=== PATIENT | male | born 1955 | race Caucasian/White ===

== ENCOUNTER → 2018-01-01 | Outpatient (REF) | payer BC ==
[2018-01-01 18:14] LABS: ALBUMIN 3.9 GM/DL (3.2-5.2); ALBUMIN/GLOBULIN RATIO 1.15 (1.00-1.93); ALKALINE PHOSPHATASE 67 U/L (45-117); ALT/SGPT 47 U/L (12-78); ANION GAP 9 MEQ/L (8-16); AST/SGOT 41 U/L (7-37); BASO # 0.1 10^3/uL (0.0-0.2); BASO % 0.8 % (0.0-1.0); BILIRUBIN,TOTAL 0.4 MG/DL (0.2-1.0); BLOOD UREA NITROGEN 12 MG/DL (7-18); CALCIUM LEVEL 8.5 MG/DL (8.8-10.2); CARBON DIOXIDE LEVEL 27 MEQ/L (21-32); CHLORIDE LEVEL 107 MEQ/L (98-107); CHOLESTEROL LEVEL 170 MG/DL (<200); CHOLESTEROL RISK RATIO 3.207 (<5); CREATININE FOR GFR 0.91 MG/DL (0.70-1.30); EOS # 0.2 10^3/uL (0.0-0.50); EOS % 3.5 % (0.0-3.0); GLOMERULAR FILTRATION RATE > 60.0 (>49); GLUCOSE, FASTING 109 MG/DL (70-100); HDL CHOLESTEROL 53 MG/DL (>40); HEMATOCRIT 34.1 % (42.0-52.0); HEMOGLOBIN 10.4 g/dl (13.5-17.5); IMMATURE GRANULOCYTE # 0.1 10^3/uL (0-0); IMMATURE GRANULOCYTE % 0.8 % (0-3.0); LDL CHOLESTEROL 100.6 MG/DL (<100); LYMPH # 1.5 10^3/uL (1.5-4.5); LYMPH % 22.9 % (24.0-44.0); MEAN CORPUSCULAR HEMOGLOBIN 27.7 pg (27.0-33.0); MEAN CORPUSCULAR HGB CONC 30.5 g/dl (32.0-36.5); MEAN CORPUSCULAR VOLUME 90.9 fl (80.0-96.0); MONO # 0.6 10^3/uL (0.0-0.8); NEUTROPHILS # 4.1 10^3/uL (1.8-7.7); NON-HDL-C 117 MG/DL; PLATELET COUNT, AUTOMATED 222 10^3/uL (150-450); RED BLOOD COUNT 3.75 10^6/uL (4.30-6.10); RED CELL DISTRIBUTION WIDTH 14.5 % (11.5-14.5); SODIUM LEVEL 143 MEQ/L (136-145); TOTAL PROTEIN 7.3 GM/DL (6.4-8.2); TRIGLYCERIDES LEVEL 82 MG/DL (<150); WHITE BLOOD COUNT 6.6 10^3/uL (4.0-10.0)
[2018-01-01 18:20] LABS: ESTIMATED AVERAGE GLUCOSE 134 MG/DL (60-110); HEMOGLOBIN A1c 6.3 %
== END ==
LOC: M LAB REF 17:09
DX: E11.65 Type 2 diabetes mellitus with hyperglycemia (principal)
CPT/HCPCS: 80053

== ENCOUNTER 2018-02-25 12:19 | Day surgery (SDC) | payer BC ==
[2018-02-25] MEDS ORDERED: PROPOFOL 200 MG/20 ML VIAL As Ordered ×2 (12:34→13:35)
[2018-02-25] MEDS ORDERED: LIDOCAINE 2% INJ 100 MG/5 ML SDV (FOR ANES.) As Ordered (12:34)
[2018-02-25] MEDS ORDERED: NS 1,000 ML IV (13:00)
== END 2018-02-25 14:19 | disposition home or self-care (01) ==
LOC: M OPP 12:19
DX: Z12.11 Encounter for screening for malignant neoplasm of colon (principal); D12.7 Benign neoplasm of rectosigmoid junction; D12.2 Benign neoplasm of ascending colon; I48.91 Unspecified atrial fibrillation; I10 Essential (primary) hypertension; E78.5 Hyperlipidemia, unspecified; E11.9 Type 2 diabetes mellitus without complications; Z86.14 Personal history of Methicillin resistant Staphylococcus aureus infection; D64.9 Anemia, unspecified; K21.9 Gastro-esophageal reflux disease without esophagitis; M19.90 Unspecified osteoarthritis, unspecified site; G47.30 Sleep apnea, unspecified; R06.83 Snoring; Z87.891 Personal history of nicotine dependence; Z79.82 Long term (current) use of aspirin; Z79.899 Other long term (current) drug therapy; Z79.84 Long term (current) use of oral hypoglycemic drugs; Z79.01 Long term (current) use of anticoagulants
CPT/HCPCS: 45385

== ENCOUNTER → 2018-05-11 | Outpatient (REF) | payer BC ==
[~2018-05-11] MED LIST: AMAR1TAB PO; AMLO5TAB6 PO; ASPI325T25 PO; ASPI81TA21 PO; ATOR1TAB19 PO; BENI40TA26 PO; ELIQ5TAB PO; FERR1TAB8 PO; GLYX1TAB3 PO; METF-699 PO; METO1TAB7 PO; OMEP20CA3 PO; TYLE650T35 PO; VIAG100T PO; VITMTA PO; XARE20TA PO
[2018-05-11 18:20] LABS: BASO # 0.1 10^3/uL (0.0-0.2); BASO % 0.9 % (0.0-1.0); EOS # 0.4 10^3/uL (0.0-0.50); EOS % 6.9 % (0.0-3.0); HEMATOCRIT 42.5 % (42.0-52.0); HEMOGLOBIN 14.2 g/dl (13.5-17.5); LYMPH # 1.9 10^3/uL (1.5-4.5); LYMPH % 35.4 % (24.0-44.0); MEAN CORPUSCULAR HEMOGLOBIN 32.6 pg (27.0-33.0); MEAN CORPUSCULAR HGB CONC 33.4 g/dl (32.0-36.5); MEAN CORPUSCULAR VOLUME 97.7 fl (80.0-96.0); MONO # 0.6 10^3/uL (0.0-0.8); MONO % 10.8 % (0.0-5.0); NEUTROPHILS # 2.5 10^3/uL (1.8-7.7); NEUTROPHILS % 45.8 % (36.0-66.0); PLATELET COUNT, AUTOMATED 210 10^3/uL (150-450); RED BLOOD COUNT 4.35 10^6/uL (4.30-6.10); WHITE BLOOD COUNT 5.4 10^3/uL (4.0-10.0)
== END ==
LOC: M LABDRAWC 16:25
PROVIDERS: ATTEND Family Medicine
DX: D64.9 Anemia, unspecified (principal)

== ENCOUNTER → 2018-07-19 | Outpatient (REF) | payer BC ==
[2018-07-19 18:36] LABS: ALBUMIN 3.9 GM/DL (3.2-5.2); ALT/SGPT 31 U/L (12-78); BILIRUBIN,TOTAL 0.7 MG/DL (0.2-1.0); BLOOD UREA NITROGEN 11 MG/DL (7-18); CALCIUM LEVEL 8.2 MG/DL (8.8-10.2); CARBON DIOXIDE LEVEL 28 MEQ/L (21-32); CHLORIDE LEVEL 104 MEQ/L (98-107); CREATININE FOR GFR 0.86 MG/DL (0.70-1.30); GLOMERULAR FILTRATION RATE > 60.0 (>49); GLUCOSE, FASTING 112 MG/DL (70-100); POTASSIUM SERUM 3.9 MEQ/L (3.5-5.1); SODIUM LEVEL 138 MEQ/L (136-145); TOTAL PROTEIN 7.3 GM/DL (6.4-8.2)
[2018-07-19 19:12] LABS: HEMOGLOBIN A1c 6.1 %
== END ==
LOC: M LABDRAWC 17:18 → M LAB REF 17:18
PROVIDERS: ATTEND Family Medicine
DX: E11.69 Type 2 diabetes mellitus with other specified complication (principal)

== ENCOUNTER → 2019-01-14 | Outpatient (REF) | payer BC ==
[~2019-01-14] MED LIST changes: +ASPI-255 PO; -ASPI325T25 PO; -OMEP20CA3 PO; +OMEP20CA4 PO
[2019-01-14 17:00] LABS: BASO # 0.1 10^3/uL (0.0-0.2); BASO % 0.8 % (0.0-1.0); EOS # 0.3 10^3/uL (0.0-0.5); EOS % 4.7 % (0.0-3.0); HEMATOCRIT 39.8 % (42.0-52.0); HEMOGLOBIN 13.3 g/dl (13.5-17.5); LYMPH # 1.7 10^3/uL (1.5-5.0); LYMPH % 26.9 % (24.0-44.0); MEAN CORPUSCULAR HEMOGLOBIN 33.9 pg (27.0-33.0); MEAN CORPUSCULAR HGB CONC 33.4 g/dl (32.0-36.5); MEAN CORPUSCULAR VOLUME 101.5 fl (80.0-96.0); MONO # 0.5 10^3/uL (0.0-0.8); MONO % 8.1 % (0.0-5.0); NEUTROPHILS # 3.7 10^3/uL (1.5-8.5); NEUTROPHILS % 58.9 % (36.0-66.0); PLATELET COUNT, AUTOMATED 208 10^3/uL (150-450); RED BLOOD COUNT 3.92 10^6/uL (4.30-6.10); WHITE BLOOD COUNT 6.2 10^3/uL (4.0-10.0)
[2019-01-14 17:06] LABS: ALBUMIN 3.8 GM/DL (3.2-5.2); ALT/SGPT 35 U/L (12-78); BILIRUBIN,TOTAL 0.5 MG/DL (0.2-1.0); BLOOD UREA NITROGEN 15 MG/DL (7-18); CALCIUM LEVEL 8.8 MG/DL (8.8-10.2); CARBON DIOXIDE LEVEL 25 MEQ/L (21-32); CHLORIDE LEVEL 109 MEQ/L (98-107); CHOLESTEROL LEVEL 167 MG/DL (<200); GLOMERULAR FILTRATION RATE > 60.0 (>49); GLUCOSE, FASTING 144 MG/DL (70-100); HDL CHOLESTEROL 53 MG/DL (>40); LDL CHOLESTEROL 81 MG/DL (<100); NON-HDL-C 114 MG/DL; POTASSIUM SERUM 4.4 MEQ/L (3.5-5.1); SODIUM LEVEL 143 MEQ/L (136-145); TOTAL PROTEIN 6.9 GM/DL (6.4-8.2); TRIGLYCERIDES LEVEL 165 MG/DL (<150)
[2019-01-14 17:33] LABS: CREATININE, URINE 83.3 MG/DL; MALB URINE SIEMENS 10.9 MG/L
[2019-01-14 19:18] LABS: HEMOGLOBIN A1c 6.3 %
== END ==
LOC: M LABDRAWC 16:19
PROVIDERS: ATTEND Family Medicine
DX: E11.69 Type 2 diabetes mellitus with other specified complication (principal)

== ENCOUNTER 2019-06-28 19:06 | Inpatient (IN) | payer BC ==
[~2019-06-28] VITALS: Ht 172.7 cm; Wt 86.9 kg
[~2019-06-28 19:06] MED LIST changes: +OMEP1CAP73 PO; -OMEP20CA4 PO
[2019-06-28] MEDS ORDERED: TOPR50TA PO ×2 (19:22→21:20)
[2019-06-28] MEDS ORDERED: GLIM2TAB29 PO (19:22)
[2019-06-28] MEDS: METOPROLOL 5 MG/5 ML VIAL IV SCH ×3 (19:27→19:55)
[2019-06-28] MEDS ORDERED: NS 1,000 ML IV ONE (19:30)
[2019-06-28] MEDS ORDERED: ASPIRIN 81 MG CHEW TABLET PO ONE (19:30)
[2019-06-28 19:40] LABS: BASO % 0.5 % (0.0-1.0); EOS # 0.2 10^3/uL (0.0-0.5); EOS % 2.4 % (0.0-3.0); HEMATOCRIT 42.1 % (42.0-52.0); HEMOGLOBIN 14.2 g/dl (13.5-17.5); LYMPH # 1.9 10^3/uL (1.5-5.0); LYMPH % 22.7 % (24.0-44.0); MEAN CORPUSCULAR HEMOGLOBIN 34.8 pg (27.0-33.0); MEAN CORPUSCULAR HGB CONC 33.7 g/dl (32.0-36.5); MEAN CORPUSCULAR VOLUME 103.2 fl (80.0-96.0); MONO # 0.8 10^3/uL (0.0-0.8); MONO % 9.5 % (0.0-5.0); NEUTROPHILS # 5.3 10^3/uL (1.5-8.5); NEUTROPHILS % 64.5 % (36.0-66.0); PLATELET COUNT, AUTOMATED 217 10^3/uL (150-450); RED BLOOD COUNT 4.08 10^6/uL (4.30-6.10); WHITE BLOOD COUNT 8.2 10^3/uL (4.0-10.0)
[2019-06-28 19:52] LABS: INR 1.26; PROTHROMBIN TIME 15.5 SECONDS (11.8-14.0)
[2019-06-28] MEDS ORDERED: METOPROLOL TART 50 MG TAB PO ONE (20:00)
[2019-06-28 20:11] LABS: ALBUMIN 3.9 GM/DL (3.2-5.2); ALT/SGPT 26 U/L (12-78); BILIRUBIN,DIRECT 0.2 MG/DL (0.0-0.2); BILIRUBIN,TOTAL 0.6 MG/DL (0.2-1.0); BLOOD UREA NITROGEN 11 MG/DL (7-18); CARBON DIOXIDE LEVEL 26 MEQ/L (21-32); CHLORIDE LEVEL 105 MEQ/L (98-107); CK-MB VALUE MASS 2.8 NG/ML (<3.6); CPK CREATINE PHOSPHOKINASE 116 U/L (39-308); CREATININE FOR GFR 0.97 MG/DL (0.70-1.30); GLOMERULAR FILTRATION RATE > 60.0 (>49); GLUCOSE, FASTING 156 MG/DL (70-100); MB/CK RELATIVE INDEX 2.41 (< OR =4); POTASSIUM SERUM 3.9 MEQ/L (3.5-5.1); SODIUM LEVEL 140 MEQ/L (136-145); TOTAL PROTEIN 7.1 GM/DL (6.4-8.2); TROPONIN I < 0.02 NG/ML (< 0.10)
[2019-06-28] MEDS ORDERED: AMIODARONE 150MG/3ML INJ (J0282) IVP STA (20:16)
[2019-06-28] MEDS ORDERED: RIVAROXABAN 20 MG TAB (XARELTO) PO SCH (21:00)
[2019-06-28] MEDS: HumaLOG INSULIN (NovoLOG) PER UNIT SC SCH (21:00)
--- NOTE | 2019-06-28 21:11 | HPEPDOC ---
[facility] Medical History & Physical Date of Admission Jun 28, 2019 Date of Service: Jun 28, 2019 Primary Care Physician: Leda Aguirre Attending Physician: RADHA CLAY MD History and Physical TIME OF SERVICE: 9:58 PM CHIEF COMPLAINT: Palpitations HISTORY OF PRESENT ILLNESS: This is a 64-year-old male with a history of long-standing atrial fibrillation who presents with complaints of more frequent episodes of "a atrial fibrillation" since May of this year. He thinks he had about 5 episodes of rapid heart rate on Thursday and today he had "attack" at 6 AM, and 5:15 PM. Associated symptoms include heat in the middle of his chest and dizziness with near fall. He denies feeling short of breath . Per discussion with the ER provided the patient received several doses of IV metoprolol and his tachycardia resolved after he received amiodarone. He reports having a stress test and an echocardiogram done in November 2018 at 's office and missed 2 appointments for sleep studies. REVIEW OF SYSTEMS: 12 point review of systems negative except as listed in HPI PAST MEDICAL/ SURGICAL HISTORY: Atrial fibrillation Gout. Chronic Hypertension Dyslipidemia NIDDM GERD SOCIAL HISTORY: Former smoker FAMILY HISTORY: Unspecified type of heart disease ALLERGIES: Please see below. HOME MEDICATIONS: Please see below. PHYSICAL EXAMINATION: VITAL SIGNS: Please see below. GEN: well-nourished / well developed/ NAD INTEGUMENT: Diaphoretic HEENT: NCAT / lips acyanotic /mucus membranes moist and pink / sclera anicteric CVS: RRR/NMRG/ no JVP / radial and dorsalis pedis pulses intact / no lower extremity edema LUNGS: clear to auscultation bilaterally on room air ABDOMEN: Contour (flat) / soft & not tender with palpation MSK/EXTREMITIES: range of motion intact in all 4 extremities NEURO: CN 2-12 are grossly intact / speech is not dysarthric / strength is 5/5 / DTRs (0-4+) PSYCH: alert and oriented to person place and time/ able to understand and follow all commands LABORATORY DATA: See below. IMAGING: Chest x-ray unremarkable MICROBIOLOGY: Please see below. ASSESSMENT: Mr. South is a 64-year-old male with a past medical history of atrial fibrillation, gout, NIDDM, HTN, and dyslipidemia who is admitted for evaluation of episodes of rapid A. fib. PLAN: 1 Atrial Fibrillation Episodes of rapid afib may be due to alcohol or untreated sleep apnea Plan: admit to PCU / telemetry / f/u serial troponins, BNP, magnesium & TSH / f/u in the AM prior to ordering Echo / he will need to have a sleep study rescheduled / increase Metoprolol XL from 50 to 100mg daily / c/w Xarelto 2. NIDDM Plan: diabetic diet / f/u accuchecks & A1C / hypoglycemia protocol / sliding scale insulin / hold oral anti-glycemics while acutely ill 3.Chronic HTN Plan: resume amlodipine, metoprolol and olmesartan 4.Dyslipidemia Plan: Atorvastatin DVT PROPHYLAXIS: n/a bc pt is on AC for Afib DISPOSITION: home after more than 2 midnight's stay LATE ENTRY The patient went back into RVR w a HR of 180 despite receiving 100mg of Metoprolol XL. We will order an additional dose of amiodarone (step 2) Vital Signs Vital Signs Date Time Temp Pulse Resp B/P (MAP) Pulse Ox O2 Delivery O2 Flow Rate FiO2 06/28/19 21:00 124/84 (97) 06/28/19 20:55 75 99 06/28/19 19:55 Room Air 06/28/19 19:07 97.5 18 Laboratory Data Labs 24H Laboratory Tests 2 06/28/19 19:25: Immature Granulocyte % (Auto) 0.4, Neutrophils (%) (Auto) 64.5, Lymphocytes (%) (Auto) 22.7L, Monocytes (%) (Auto) 9.5H, Eosinophils (%) (Auto) 2.4, Basophils (%) (Auto) 0.5, Neutrophils # (Auto) 5.3, Lymphocytes # (Auto) 1.9, Monocytes # (Auto) 0.8, Eosinophils # (Auto) 0.2, Basophils # (Auto) 0.0, Nucleated Red Blood Cells % (auto) 0.0, Prothrombin Time 15.5H, Prothromb Time International Ratio 1.26, Anion Gap 9, Glomerular Filtration Rate > 60.0, Calcium Level 9.0, Total Bilirubin 0.6, Direct Bilirubin 0.2, Aspartate Amino Transf (AST/SGOT) 19, Alanine Aminotransferase (ALT/SGPT) 26, Alkaline Phosphatase 67, Total Creatine Kinase 116, Creatine Kinase MB 2.8, Creatine Kinase MB Relative Index 2.41, Troponin I < 0.02, Total Protein 7.1, Albumin 3.9, Albumin/Globulin Ratio 1.22 CBC/BMP Laboratory Tests 06/28/19 19:25 Home Medications Scheduled Amlodipine Besylate (Amlodipine Besylate) 5 Mg Tablet, 5 MG PO QHS Atorvastatin Calcium (Atorvastatin Calcium) 10 Mg Tab, 10 MG PO QHS Empagliflozin/Linagliptin (Glyxambi 10 mg-5 mg Tablet) 1 Tab Tab, 1 TAB PO QHS Ferrous Sulfate (Ferrous Sulfate) 325 Mg Tablet, 650 MG PO QHS Glimepiride (Glimepiride) 2 Mg Tablet, 1 MG PO QHS Metformin HCl (Metformin ER Gastric) 500 Mg Tab, 1,500 MG PO QHS Metoprolol Succinate (Toprol Xl) 50 Mg Tab.er.24h, 50 MG PO QHS Multivitamins (Thera M Plus Tablet) 1 Tab Tab, 1 TAB PO QHS Olmesartan Medoxomil (Benicar) 40 Mg Tab, 40 MG PO QHS Omeprazole (Omeprazole) 20 Mg Cap, 20 MG PO QHS Rivaroxaban (Xarelto) 20 Mg Tab, 20 MG PO QHS Scheduled PRN Acetaminophen (Tylenol Arthritis) 650 Mg Tab, 650 MG PO Q8H PRN for PAIN Allergies Coded Allergies: No Known Allergies (Unverified , 06/28/19) A-FIB/CHADSVASC A-FIB History Current/History of A-Fib/PAF?: Yes Current PO Anticoag Therapy: Yes Age/Risk Factor Scoring CHADSVASC: CHADSVASC Response (Comments) Value Age Risk Factor Age 65-74 years old 1 Gender Risk Factor Male 0 Hx of CHF No 0 Hx of HTN Yes 1 Hx of Stroke/TIA/or VTE No 0 Hx of Diabetes Yes 1 Hx of Vascular Disease No 0 Total 3 Treatment Treatment ordered: Rivaroxaban RADHA CLAY MD Jun 28, 2019 21:11
[2019-06-28] MEDS ORDERED: GLUCOSE 4 GM CHEW TABLET PO PRN (21:15)
[2019-06-28] MEDS ORDERED: MOM 30ML SUSPENSION UDC PO PRN (21:15)
[2019-06-28] MEDS ORDERED: MAALOX 30 ML SUSP *UDC PO PRN (21:15)
[2019-06-28] MEDS ORDERED: DEXTROSE 50% 50 ML SYRINGE IV PRN (21:15)
[2019-06-28] MEDS ORDERED: ACETAMINOPHEN TAB 650MG DOSE (2X325MG) PO PRN (21:15)
[2019-06-28] MEDS ORDERED: GLUCAGON FOR INJ 1 MG VIAL (J1610) SC PRN (21:15)
[2019-06-28] MEDS ORDERED: AMLO5TAB6 PO (21:20)
[2019-06-28] MEDS ORDERED: FERR1TAB8 PO (21:20)
--- NOTE | 2019-06-28 21:34 | REP ---
CHEST, SINGLE VIEW: There is no evidence of acute infiltrate. No pleural effusion is seen. The heart is normal in size. The mediastinal silhouette is unremarkable. The visualized osseous structures are intact. IMPRESSION: No acute pulmonary disease. Electronically Signed by Mian Hung MD 06/29/2019 03:10 P
[2019-06-28 21:39] LABS: MAGNESIUM LEVEL 2.3 MG/DL (1.8-2.4); NT-PRO BNP 689 PG/ML (<125)
[2019-06-28 21:48] LABS: HEMOGLOBIN A1c 6.4 %
[2019-06-28 22:17] VITALS: BP 126/91
[2019-06-28] MEDS ORDERED: METOPROLOL SUCC (TopROL XL) 50MG **XL** TAB PO ONE (23:00)
[2019-06-28] MEDS ORDERED: METOPROLOL SUCC (TopROL XL) 100MG *XL* TAB PO ONE (23:00)
[2019-06-28] MEDS: MULTIVITAMINS/MINERALS THERAP 1 TAB PO SCH (23:24)
[2019-06-28] MEDS: OMEPRAZOLE 20 MG CAP PO SCH (23:24)
[2019-06-28] MEDS: ATORVASTATIN 10 MG TAB PO SCH (23:25)
[2019-06-28] MEDS: amLODIPine 5 MG TAB PO SCH (23:25)
[2019-06-29] MEDS: OLMESARTAN MEDOXOMIL 20 MG TAB (BENICAR) PO SCH ×2 (00:40→20:13)
[2019-06-29] MEDS ORDERED: AMIODARONE HCL 360 MG in IV 1 EA IV SCH (03:30)
[2019-06-29 04:00] VITALS: BP 108/84
[2019-06-29 05:27] LABS: HEMATOCRIT 38.2 % (42.0-52.0); MEAN CORPUSCULAR HEMOGLOBIN 35.4 pg (27.0-33.0); MEAN CORPUSCULAR VOLUME 104.1 fl (80.0-96.0); PLATELET COUNT, AUTOMATED 191 10^3/uL (150-450); RED BLOOD COUNT 3.67 10^6/uL (4.30-6.10); WHITE BLOOD COUNT 7.3 10^3/uL (4.0-10.0)
[2019-06-29 05:53] LABS: BLOOD UREA NITROGEN 12 MG/DL (7-18); CALCIUM LEVEL 8.8 MG/DL (8.8-10.2); CARBON DIOXIDE LEVEL 28 MEQ/L (21-32); CHLORIDE LEVEL 106 MEQ/L (98-107); GLOMERULAR FILTRATION RATE > 60.0 (>49); GLUCOSE, FASTING 145 MG/DL (70-100); POTASSIUM SERUM 3.9 MEQ/L (3.5-5.1); SODIUM LEVEL 138 MEQ/L (136-145); TROPONIN I < 0.02 NG/ML (< 0.10)
[2019-06-29] MEDS ORDERED: SLF 3 ML SYR IV PRN (07:45)
--- NOTE | 2019-06-29 07:45 | ECGEPIP ---
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 Rhythm change from 06/28/19 Clinical correlation advised Electronically Signed on 06-29-2019 7:45:21 EST by Jonn Foster
[2019-06-29] MEDS: DOCUSATE SODIUM 100 MG CAP PO SCH ×2 (07:55→20:13)
[2019-06-29] MEDS: HumaLOG INSULIN (NovoLOG) PER UNIT SC SCH ×4 (07:55→20:14)
[2019-06-29 08:00] VITALS: BP 141/94
--- NOTE | 2019-06-29 08:12 | ECGEPIP ---
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
[2019-06-29 13:10] VITALS: BP 142/80
[2019-06-29] MEDS ORDERED: AMIODARONE HCL 150 MG in IV 1 EA IV STA (13:26)
[2019-06-29] MEDS ORDERED: AMIODARONE HCL 150 MG/100 ML PREMIXED BAG (NEXTERONE) (J0282 PER 30MG) As Ordered ONE (13:29)
[2019-06-29] MEDS: SLF 3 ML SYR IV SCH ×2 (13:34→22:16)
[2019-06-29 14:34] LABS: MAGNESIUM LEVEL 2.1 MG/DL (1.8-2.4)
[2019-06-29] MEDS: METOPROLOL SUCC (TopROL XL) 50MG **XL** TAB PO SCH ×2 (14:40→20:14)
[2019-06-29 15:45] VITALS: BP 112/78
--- NOTE | 2019-06-29 15:58 | IPNPDOC ---
Text Note Date of Service The patient was seen on 06/29/19. NOTE Subjective: Patient is a 64-year-old male with a PMHx of A. fib, HTN, DLP, NIDDM2, Gout and GERD who presented to the emergency room with complaints of p alpitation. Patient has reported that he's been in and out of atrial fibrillation and has noted expressing attacks of palpitation. Upon arrival to emergency room, patient was found to be in atrial fibrillation with RVR, heart rate greater than 200. Patient was admitted to hospitalist service for further evaluation and treatment. Cardiology was called on consultation. Patient was seen and examined at the bedside. Patient was seen this morning and was in normal sinus rhythm. At that time. He denied any chest pain. She is of breath, palpitations, nausea, vomiting, pain, constipation, diarrhea, or urinary discomfort. 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 Gorman; appreciate their input; case discussed; patient will likely be transferred to [facility] tomorrow morning for ablation evaluation - Xarelto has been discontinue in anticipation of possible procedure HTN - c/w Amlodipine, Olmesartan - Dose of metoprolol has been adjusted DLP - c/w Atorvastatin NIDDM2 - Metformin on hold since admission - A1c of 6.4 - c/w ISS Gout - Currently not on medications GERD - c/w Omeprazole DVT prophylaxis - Will discontinue Xarelto - c/w TEDs/Sequentials VS,Fishbone, I+O VS, Fishbone, I+O Laboratory Tests 06/28/19 19:25 06/29/19 05:05 Vital Signs Date Time Temp Pulse Resp B/P (MAP) Pulse Ox O2 Delivery O2 Flow Rate FiO2 06/29/19 14:40 172 142/86 06/29/19 13:15 98.0 20 95 Room Air 06/28/19 22:05 2.0 I&O- Last 24 Hours up to 6 AM 06/29/19 06:00 Intake Total 1360 ml Output Total 650 ml Balance 710 ml ISIDRO MOON MD Jun 29, 2019 15:58
[2019-06-29 16:00] VITALS: BP 154/90
[2019-06-29 20:00] VITALS: BP 162/90
[2019-06-29] MEDS: OMEPRAZOLE 20 MG CAP PO SCH (20:13)
[2019-06-29] MEDS: MULTIVITAMINS/MINERALS THERAP 1 TAB PO SCH (20:13)
[2019-06-29] MEDS: ATORVASTATIN 10 MG TAB PO SCH (20:14)
[2019-06-29] MEDS: AMIODARONE 200 MG TAB (PACERONE) PO SCH (20:14)
[2019-06-29] MEDS: amLODIPine 5 MG TAB PO SCH (20:14)
[2019-06-29] MEDS ORDERED: METOPROLOL SUCC (TopROL XL) 100MG *XL* TAB PO SCH (21:00)
[2019-06-30] VITALS: BP 166/92
[2019-06-30 04:00] VITALS: BP 168/96
[2019-06-30] MEDS: SLF 3 ML SYR IV SCH (05:32)
--- NOTE | 2019-06-30 05:48 | ECGEPIP ---
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
[2019-06-30 06:31] LABS: HEMATOCRIT 39.5 % (42.0-52.0); HEMOGLOBIN 13.5 g/dl (13.5-17.5); MEAN CORPUSCULAR HEMOGLOBIN 35.2 pg (27.0-33.0); MEAN CORPUSCULAR HGB CONC 34.2 g/dl (32.0-36.5); MEAN CORPUSCULAR VOLUME 103.1 fl (80.0-96.0); PLATELET COUNT, AUTOMATED 201 10^3/uL (150-450); RED BLOOD COUNT 3.83 10^6/uL (4.30-6.10); WHITE BLOOD COUNT 8.9 10^3/uL (4.0-10.0)
[2019-06-30 07:01] LABS: BLOOD UREA NITROGEN 12 MG/DL (7-18); CALCIUM LEVEL 8.7 MG/DL (8.8-10.2); CARBON DIOXIDE LEVEL 27 MEQ/L (21-32); CHLORIDE LEVEL 106 MEQ/L (98-107); CREATININE FOR GFR 0.86 MG/DL (0.70-1.30); GLOMERULAR FILTRATION RATE > 60.0 (>49); GLUCOSE, FASTING 125 MG/DL (70-100); POTASSIUM SERUM 3.6 MEQ/L (3.5-5.1); SODIUM LEVEL 140 MEQ/L (136-145)
[2019-06-30] MEDS: HumaLOG INSULIN (NovoLOG) PER UNIT SC SCH (07:30)
[2019-06-30] MEDS: DOCUSATE SODIUM 100 MG CAP PO SCH (07:58)
[2019-06-30] MEDS: AMIODARONE 200 MG TAB (PACERONE) PO SCH (07:58)
[2019-06-30 07:59] VITALS: BP 124/88
[2019-06-30] MEDS: METOPROLOL SUCC (TopROL XL) 50MG **XL** TAB PO SCH (07:59)
[2019-06-30 08:00] VITALS: BP 146/77
[2019-06-30] MEDS ORDERED: AMIODARONE HCL 150 MG/100 ML PREMIXED BAG (NEXTERONE) (J0282 PER 30MG) As Ordered ONE (08:21)
[2019-06-30] MEDS ORDERED: AMIODARONE 150MG/3ML INJ (J0282) IVP ONE (08:30)
--- NOTE | 2019-06-30 10:43 | DS.PDOC ---
Discharge Summary General Date of Admission Jun 28, 2019 at 21:10 Date of Discharge 06/30/2019 Discharge Summary PROCEDURES PERFORMED DURING STAY: [None]. ADMITTING DIAGNOSES / DISCHARGE DIAGNOSES: Atrial Fibrillation s/p RVR HTN DLP NIDDM2 Gout GERD DVT prophylaxis COMPLICATIONS/CHIEF COMPLAINT: Palpitations HISTORY OF PRESENT ILLNESS: Patient is a 64-year-old male with a PMHx of A. fib, HTN, DLP, NIDDM2, Gout and GERD who presented to the emergency room with complaints of palpitation. Patient has reported that he's been in and out of atrial fibrillation and has noted expressing attacks of palpitation. Upon arrival to emergency room, patient was found to be in atrial fibrillation with RVR, heart rate greater than 200. Patient was admitted to hospitalist service for further evaluation and treatment. Cardiology was called on consultation. HOSPITAL COURSE: Atrial Fibrillation s/p RVR - Patient has been in and out of A. fib - currently is asymptomatic - Serial troponins x3 negative - EKG has revealed normal sinus rhythm this morning - c/w Telemetry monitoring - c/w Amiodarone and Metoprolol - Cardiology on consultation; Dr. Gorman; appreciate their input; case discussed; - Patient will likely be transferred to [facility] today for possible cardiac ablation therapy - Xarelto has been discontinued HTN - c/w Amlodipine, Olmesartan - Dose of metoprolol has been adjusted DLP - c/w Atorvastatin NIDDM2 - Metformin on hold since admission - A1c of 6.4 - c/w ISS Gout - Currently not on medications GERD - c/w Omeprazole DVT prophylaxis - Will discontinue Xarelto - c/w TEDs/Sequentials DISCHARGE MEDICATIONS: Please see below. ALLERGIES: Please see below. PHYSICAL EXAMINATION ON DISCHARGE: General: Lying in bed, no acute distress, comfortable, AAOx3 HEENT: NC, AT CVS: +S1S2 Lungs: Fair air entry b/l, no evidence of wheezing / rhonchi / rales Abdomen: Soft, non-distended / non-tender Extremities: - Edema, - Calf tenderness LABORATORY DATA: Please see below. ACTIVITY: [As tolerated]. DISCHARGE PLAN: Follow up with Dr. Abran Aguirre, Dr. Gorman within 7 days Remain compliant with treatment plan and medications Return to the ER if you experience any problems DISPOSITION: Home DISCHARGE CONDITION: [Stable]. TIME SPENT ON DISCHARGE: 35 minutes Vital Signs/I&Os Vital Signs Date Time Temp Pulse Resp B/P (MAP) Pulse Ox O2 Delivery O2 Flow Rate FiO2 06/30/19 08:00 98.3 73 17 146/77 (100) 95 Room Air 06/28/19 22:05 2.0 I&O- Last 24 Hours up to 6 AM 06/30/19 06:00 Intake Total 902 ml Output Total 1750 ml Balance -848 ml Laboratory Data Labs 24H Laboratory Tests 2 06/29/19 13:05: Bedside Glucose (Misc Panel) 151H 06/29/19 17:45: Bedside Glucose (Misc Panel) 148H 06/29/19 20:04: Bedside Glucose (Misc Panel) 165H 06/30/19 06:01: Nucleated Red Blood Cells % (auto) 0.0, Anion Gap 7L, Glomerular Filtration Rate > 60.0, Calcium Level 8.7L, Magnesium Level 2.0 CBC/BMP Laboratory Tests 06/30/19 06:01 FSBS Laboratory Tests Test 06/29/19 13:05 06/29/19 17:45 06/29/19 20:04 Range/Units Bedside Glucose (Misc Panel) 151 148 165 80-115 MG/DL Discharge Medications Scheduled Amlodipine Besylate (Amlodipine Besylate) 5 Mg Tablet, 5 MG PO QHS, (Reported) Atorvastatin Calcium (Atorvastatin Calcium) 10 Mg Tab, 10 MG PO QHS, (Reported) Empagliflozin/Linagliptin (Glyxambi 10 mg-5 mg Tablet) 1 Tab Tab, 1 TAB PO QHS, (Reported) Ferrous Sulfate (Ferrous Sulfate) 325 Mg Tablet, 650 MG PO QHS, (Reported) Glimepiride (Glimepiride) 2 Mg Tablet, 1 MG PO QHS, (Reported) Metformin HCl (Metformin ER Gastric) 500 Mg Tab, 1,500 MG PO QHS, (Reported) Metoprolol Succinate (Toprol Xl) 50 Mg Tab.er.24h, 50 MG PO QHS, (Reported) Multivitamins (Thera M Plus Tablet) 1 Tab Tab, 1 TAB PO QHS, (Reported) Olmesartan Medoxomil (Benicar) 40 Mg Tab, 40 MG PO QHS, (Reported) Omeprazole (Omeprazole) 20 Mg Cap, 20 MG PO QHS, (Reported) Rivaroxaban (Xarelto) 20 Mg Tab, 20 MG PO QHS, (Reported) Scheduled PRN Acetaminophen (Tylenol Arthritis) 650 Mg Tab, 650 MG PO Q8H PRN for PAIN, (Reported) Allergies Coded Allergies: No Known Allergies (Unverified , 06/28/19) ISIDRO MOON MD Jun 30, 2019 10:43
--- NOTE | 2019-07-01 07:24 | CR ---
DATE OF CONSULTATION: 06/29/2019 REFERRING PHYSICIAN: Dr. Rena Dominguez. PRIMARY CARE PHYSICIAN: Dr. Leda Aguirre. 64-year-old male well known by the office with a history of paroxysmal atrial fibrillation, hypertension, hyperlipidemia, diabetes mellitus, arthritis, and gout and he was known in the past to have mildly dilated descending aorta of 4.3 cm by echocardiogram on 01/08/2018. He was initially diagnoses with the atrial fibrillation in January 2016. He has been doing well from a cardiac point of view, rarely symptomatic until earlier this month when he starting having episodes of paroxysmal atrial fibrillation, symptomatic and they are associated with chest discomfort. He said he had those episodes on many occasions during the day and not associated with any specific activities. He had a Holter monitor on 06/17/2019 that confirmed his episode of paroxysmal atrial fibrillation and with fastest heart rate, there was some ST-segment depression. His beta-bill was increased last Thursday but he continued to be symptomatic and he has called the office on many occasions on Thursday and on Thursday. He was at work and having those episodes and he was told to go to the emergency room (ER) for further evaluation. Upon arrival at the ER, he was in atrial fibrillation with a rapid ventricular rate. He was treated with IV amiodarone, started on a drip, then admitted to progressive care unit (PCU) for further management and monitoring. Cardiology consult was called. 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 When I saw him in the morning of 06/29/2019, he was supine in bed in no acute distress, in normal sinus rhythm. He stated he is doing fine when he is not in atrial fibrillation but when he has those episodes at times, they may be associated with chest tightness. He denies any syncope or near syncope. He has no pedal edema. He denies any chest pain with activities. He has not been coughing. He denies any bleeding. He has no heartburn. He has no focal manifestation. PAST MEDICAL HISTORY: He has a past medical history as mentioned above for paroxysmal atrial fibrillation. He said it was diagnosed in 2016, hypertension, hyperlipidemia, diabetes mellitus, arthritis/gout, gastroesophageal reflux disease (GERD). There is no known history of restrictive coronary artery disease, myocardial infarction, significant valvular heart disease, transient ischemic attack (TIA)/cerebrovascular accident (CVA), cardiomyopathy, sudden cardiac , kidney disease, thyroid disorders. On his echocardiogram done in 2018, his ascending aorta was measured at 4.3 cm. He also does have a history of myocardial infarction (VA). PAST SURGICAL HISTORY: The past surgical history is positive for gastrointestinal (GI) workup, gastroscopy and colonoscopy, cyst removed from his right great toe. Last colonoscopy was in 2018 at [facility]. MEDICATIONS AT HOME: - Xarelto 20 mg by mouth daily - aspirin - Amaryl 1 mg by mouth daily - amlodipine 5 mg nightly - atorvastatin 10 mg by mouth nightly - Benicar 40 mg by mouth daily - metformin 400 mg by mouth three times a day - metoprolol succinate 50 mg by mouth daily - multivitamins one tablet by mouth daily - omeprazole 20 mg by mouth daily. CURRENT MEDICATIONS: - IV amiodarone drip - amlodipine 5 mg by mouth nightly - atorvastatin 10 mg by mouth daily - Glyxambi 10/5 mg one tablet nightly - ferrous sulfate 325 mg by mouth nightly - glimepiride 1 mg by mouth nightly - metformin 500 mg tablets two tablets daily - metoprolol succinate 50 mg by mouth nightly - Benicar 40 mg by mouth nightly - omeprazole 20 mg by mouth nightly - Xarelto 20 mg by mouth nightly. - He also takes Tylenol as needed for pain. FAMILY HISTORY: Positive for heart disease. SOCIAL HISTORY: The patient does not smoke or abuse alcohol. He works full-time. He has a son in [facility] and a daughter in the [facility]. ALLERGIES: No known drug allergies. ADVANCED DIRECTIVES: The patient is a FULL CODE. PHYSICAL EXAMINATION: The patient is alert and oriented, in no acute distress Vial signs are stable with a blood pressure of 130/84, pulse 72, respiration 18 and he is afebrile. His oxygenation is normal at 98%. Examination of the head: Unremarkable. Neck did not reveal any jugular venous distention (JVD) or carotid bruits. Lungs were clear bilaterally on auscultation without any wheezing or crackles. The heart examination revealed normal S1 and S2 without gallops. The point of maximum impulse (PMI) is not displaced. There was no rub. I could not appreciated any murmurs. Abdomen is soft and nontender. Extremities revealed no pedal edema. Peripheral pulses, dorsalis pedis were +2 and equal. Neurological examination grossly was negative for focal deficit. LABS: CBC revealed a WBC of 7.3, hemoglobin 13.0 hematocrit 38.2 and platelet 191,000. BMP last on the evening of 06/28/2019 on admission revealed a glucose of 156, BUN 11 and creatinine 0.97, GFR more than 60, fasting glucose 140, potassium 3.9, chloride 105, CO2 26 and calcium 9.0. Liver enzymes revealed an AST of 19, ALT of 26, alkaline phosphatase 67, total bilirubin 0.6, direct bilirubin 0.2, total protein 7.1, albumin 3.9. Magnesium is 2.3. Serum troponin times two is less than0.02. Serum ProBNP 689. TSH is 2.50. Repeat BMP done this morning 06/29/2019 revealed a glucose of 145, BUN 12creatinine 0.9, sodium 138, potassium 3.9, chloride 106, CO2 28 and calcium 8.8. IMAGING STUDIES: Chest x-ray on 06/28/2019 revealed no acute disease process. No cardiomegaly. No manifestation of heart failure. EKGs previous on 06/28/2019 at 19:17:21 revealed atrial fibrillation at a rate of about 200 beats per minute and there was nonspecific ST-T abnormalities noted in the anterolateral leads with ST depression that may be related to ischemia. EKG done on 06/29/2019 at 3:44:53 revealed atrial fibrillation at 168 beats per minute and no significant ST-T abnormalities noted when compared to the prior EKG done last evening and when his heart rate was about 203 beats per minute. IMPRESSION: 1. Symptomatic paroxysmal atrial fibrillation in this 64-year-old male with a history of hypertension, hyperlipidemia, diabetes mellitus. The patient is very symptomatic with multiple episodes daily making him unable to work. It is also associated with chest discomfort at times and EKG changes. He has multiple risk factors for coronary artery disease (CAD) and even when his serum troponin remained negative, I believe we need to rule out underlying CAD in view of his overall cardiovascular risk factors. He will be referred for cardiac catheterization to assess coronary anatomy and this was discussed with him, he is in agreement. This also was discussed with the hospitalist and they invasive team in [place]. The Xarelto as well as the metformin will be on hold. After his cardiac catheterization, depending on the findings, and while at [facility], he will see a local home health aide for further evaluation of his paroxysmal atrial fibrillation. 2. Hypertension: Under control. 3. Hyperlipidemia, on a statin. 4. Diabetes mellitus: This is being addressed. 5. Arthritis/gout Stable. 6. Mildly dilated ascending aorta at 4.3 cm and this will be monitored. It was a pleasure to participate in the care of Mr. Domenico South for his underlying cardiac condition. He appears to be stable and as mentioned above, he is in agreement with the plan. Not mentioned above, he had a nuclear stress test in 2016 and there was no ischemia or infarction, left ventricular ejection fraction (LVEF) was normal. He also had an exercise stress echocardiogram on 01/08/2018 and there was no ischemia. LVEF was normal. CLARK
--- NOTE | 2019-07-01 16:50 | ECGEPIP ---
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 Rhythm change and decreased heart rate compared with 06/28/2019. Electronically Signed on 07-01-2019 16:49:39 EST by Don Acosta
== END 2019-06-30 09:47 | disposition short-term general hospital (02) | DRG 201 ==
LOC: M ED 19:06 → M ED INP 21:10 → ENRESERVDT 21:51 → ENRESERVTM 21:51 → M PCU 22:17
PROVIDERS: ADMIT Internal Medicine; ATTEND Internal Medicine
DX: I48.91 Unspecified atrial fibrillation (principal); I10 Essential (primary) hypertension; M10.9 Gout, unspecified; E78.5 Hyperlipidemia, unspecified; E11.9 Type 2 diabetes mellitus without complications; K21.9 Gastro-esophageal reflux disease without esophagitis; Z91.19 Patient's noncompliance with other medical treatment and regimen; Z87.891 Personal history of nicotine dependence; Z79.84 Long term (current) use of oral hypoglycemic drugs; Z79.899 Other long term (current) drug therapy

== ENCOUNTER 2019-07-12 12:02 | Emergency (ER) | payer BC ==
[~2019-07-12] VITALS: Ht 172.7 cm; Wt 90.3 kg
[~2019-07-12 12:02] MED LIST changes: +GLIM2TAB29 PO; +TOPR50TA PO
[2019-07-12] MEDS ORDERED: AMIO400T7 (13:15)
[2019-07-12] MEDS ORDERED: SILD50TA PO (13:15)
[2019-07-12 13:44] VITALS: BP 120/67
== END 2019-07-12 13:49 | disposition home or self-care (01) ==
LOC: M ED 12:02
DX: Z48.817 Encounter for surgical aftercare following surgery on the skin and subcutaneous tissue (principal); I48.91 Unspecified atrial fibrillation; E11.9 Type 2 diabetes mellitus without complications; I10 Essential (primary) hypertension; E78.5 Hyperlipidemia, unspecified; Z98.61 Coronary angioplasty status; Z87.891 Personal history of nicotine dependence; Z79.84 Long term (current) use of oral hypoglycemic drugs; Z79.899 Other long term (current) drug therapy

== ENCOUNTER → 2019-07-15 | Outpatient (REF) | payer BC ==
[~2019-07-15] MED LIST changes: +AMIO400T7; +SILD50TA PO
[2019-07-15 16:44] LABS: BASO # 0.1 10^3/uL (0.0-0.2); BASO % 0.8 % (0.0-1.0); EOS # 0.3 10^3/uL (0.0-0.5); EOS % 4.4 % (0.0-3.0); HEMATOCRIT 41.4 % (42.0-52.0); HEMOGLOBIN 13.7 g/dl (13.5-17.5); LYMPH # 1.8 10^3/uL (1.5-5.0); LYMPH % 24.1 % (24.0-44.0); MEAN CORPUSCULAR HEMOGLOBIN 34.3 pg (27.0-33.0); MEAN CORPUSCULAR HGB CONC 33.1 g/dl (32.0-36.5); MEAN CORPUSCULAR VOLUME 103.8 fl (80.0-96.0); MONO # 0.6 10^3/uL (0.0-0.8); MONO % 8.2 % (0.0-5.0); NEUTROPHILS # 4.6 10^3/uL (1.5-8.5); PLATELET COUNT, AUTOMATED 251 10^3/uL (150-450); RED BLOOD COUNT 3.99 10^6/uL (4.30-6.10); WHITE BLOOD COUNT 7.5 10^3/uL (4.0-10.0)
[2019-07-15 17:01] LABS: BLOOD UREA NITROGEN 9 MG/DL (7-18); CALCIUM LEVEL 9.2 MG/DL (8.8-10.2); CARBON DIOXIDE LEVEL 28 MEQ/L (21-32); CHLORIDE LEVEL 109 MEQ/L (98-107); CREATININE FOR GFR 0.95 MG/DL (0.70-1.30); FREE T4 1.17 NG/DL (0.76-1.46); GLOMERULAR FILTRATION RATE > 60.0 (>49); GLUCOSE, FASTING 66 MG/DL (70-100); POTASSIUM SERUM 4.2 MEQ/L (3.5-5.1); SODIUM LEVEL 142 MEQ/L (136-145); TOTAL T3 58.8 NG/DL (60.0-181.0)
== END ==
LOC: M LABDRAWC 16:04
PROVIDERS: ATTEND Internal Medicine Cardiovascular Disease
DX: I48.0 Paroxysmal atrial fibrillation (principal)

== ENCOUNTER → 2019-07-15 | Outpatient (REF) | payer BC ==
[2019-07-15 16:59] LABS: HEMOGLOBIN A1c 5.9 %
== END ==
LOC: M LABDRAWC 16:06
PROVIDERS: ATTEND Family Medicine
DX: E11.69 Type 2 diabetes mellitus with other specified complication (principal)

== ENCOUNTER → 2019-12-11 | Outpatient (CLI) | payer BC ==
[~2019-12-11] MED LIST changes: +ACET650T61 PO; +AMLO1TAB24 PO; -AMLO5TAB6 PO; -METF-699 PO; +METF-817 PO; -TYLE650T35 PO
== END ==
LOC: M LABSMTC 11:10
PROVIDERS: ATTEND Internal Medicine Cardiovascular Disease
DX: Z11.59 Encounter for screening for other viral diseases (principal); Z20.828 Contact with and (suspected) exposure to other viral communicable diseases
CPT/HCPCS: C9803; U0002

== ENCOUNTER → 2020-04-20 | Outpatient (REF) | payer BC | LOC: M LAB REF 19:11 | PROVIDERS: ATTEND Physician Assistant Medical | DX: Z11.59 Encounter for screening for other viral diseases (principal) ==

== ENCOUNTER → 2020-05-21 | Outpatient (REF) | payer BC ==
[2020-05-21 16:52] LABS: BASO # 0.1 10^3/uL (0.0-0.2); BASO % 0.9 % (0.0-1.0); EOS # 0.2 10^3/uL (0.0-0.5); EOS % 2.9 % (0.0-3.0); HEMATOCRIT 43.6 % (42.0-52.0); HEMOGLOBIN 14.2 g/dl (13.5-17.5); LYMPH # 1.3 10^3/uL (1.5-5.0); LYMPH % 22.6 % (24.0-44.0); MEAN CORPUSCULAR HEMOGLOBIN 33.5 pg (27.0-33.0); MEAN CORPUSCULAR HGB CONC 32.6 g/dl (32.0-36.5); MEAN CORPUSCULAR VOLUME 102.8 fl (80.0-96.0); MONO # 0.6 10^3/uL (0.0-0.8); MONO % 11.3 % (0.0-5.0); NEUTROPHILS # 3.4 10^3/uL (1.5-8.5); NEUTROPHILS % 61.8 % (36.0-66.0); PLATELET COUNT, AUTOMATED 217 10^3/uL (150-450); RED BLOOD COUNT 4.24 10^6/uL (4.30-6.10); WHITE BLOOD COUNT 5.6 10^3/uL (4.0-10.0)
[2020-05-21 17:11] LABS: ALBUMIN 3.8 GM/DL (3.2-5.2); ALT/SGPT 28 U/L (12-78); BILIRUBIN,TOTAL 0.6 MG/DL (0.2-1.0); BLOOD UREA NITROGEN 14 MG/DL (7-18); CALCIUM LEVEL 9.4 MG/DL (8.8-10.2); CARBON DIOXIDE LEVEL 27 MEQ/L (21-32); CHLORIDE LEVEL 105 MEQ/L (98-107); CHOLESTEROL LEVEL 191 MG/DL (<200); CHOLESTEROL RISK RATIO 3.183 (<5); CREATININE FOR GFR 1.19 MG/DL (0.70-1.30); GLOMERULAR FILTRATION RATE > 60.0 (>49); GLUCOSE, FASTING 89 MG/DL (70-100); HDL CHOLESTEROL 60 MG/DL (>40); LDL CHOLESTEROL 107 MG/DL (<100); NON-HDL-C 131 MG/DL; POTASSIUM SERUM 4.7 MEQ/L (3.5-5.1); SODIUM LEVEL 137 MEQ/L (136-145); TOTAL PROTEIN 7.1 GM/DL (6.4-8.2); TRIGLYCERIDES LEVEL 121 MG/DL (<150)
[2020-05-21 17:15] LABS: MALB URINE SIEMENS 22.2 MG/L; MAU/CREAT RATIO 12.4 MCG/MG (0.0-30.0)
[2020-05-21 17:50] LABS: HEMOGLOBIN A1c 4.7 %
== END ==
LOC: M LABDRAWC 15:50
PROVIDERS: ATTEND Family Medicine
DX: E11.69 Type 2 diabetes mellitus with other specified complication (principal)

== ENCOUNTER 2020-07-16 13:08 | Emergency (ER) | payer BC ==
[~2020-07-16] VITALS: Ht 172.7 cm; Wt 91.9 kg
[2020-07-16] MEDS ORDERED: AMIO0.1T (13:39)
--- NOTE | 2020-07-16 14:45 | REP ---
INDICATION: hit on pallet. COMPARISON: None. TECHNIQUE: Four views of the left calf are presented. FINDINGS: Four views of the left tib fib demonstrate some vascular calcification. Mild patellar spurring is seen at the knee.. No fracture or subluxation is seen. No opaque foreign body noted. IMPRESSION: Negative left tib fib series. <Electronically signed by Rajendra Honeycutt > 07/16/20 [id number]
--- NOTE | 2020-07-16 14:48 | REP ---
INDICATION: hit on pallet. COMPARISON: None. TECHNIQUE: Four views of the left foot. FINDINGS: Four views of the left foot demonstrate osteoarthritic spurring and joint space narrowing at the 1st MTP joint. There is soft tissue swelling about the lateral aspect of the hindfoot and distal fibula. Vascular calcification is noted. No fracture or subluxation is visible. Plantar and Achilles calcaneal spurring is noted. 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 . No opaque foreign body noted. IMPRESSION: Midfoot, 1st MTP joint, and heel spurring. Fairly extensive vascular calcification. Some lateral soft tissue swelling. No fracture seen.. <Electronically signed by Rajendra Honeycutt > 07/16/20 [id number]
[2020-07-16 15:15] LABS: BASO % 0.6 % (0.0-1.0); EOS # 0.2 10^3/uL (0.0-0.5); EOS % 3.6 % (0.0-3.0); HEMATOCRIT 43.2 % (42.0-52.0); HEMOGLOBIN 14.2 g/dl (13.5-17.5); LYMPH # 0.8 10^3/uL (1.5-5.0); LYMPH % 15.3 % (24.0-44.0); MEAN CORPUSCULAR HEMOGLOBIN 33.8 pg (27.0-33.0); MEAN CORPUSCULAR HGB CONC 32.9 g/dl (32.0-36.5); MEAN CORPUSCULAR VOLUME 102.9 fl (80.0-96.0); MONO # 0.5 10^3/uL (0.0-0.8); MONO % 10.7 % (2.0-8.0); NEUTROPHILS # 3.5 10^3/uL (1.5-8.5); NEUTROPHILS % 69.6 % (36.0-66.0); PLATELET COUNT, AUTOMATED 182 10^3/uL (150-450)
[2020-07-16 15:33] LABS: ERYTHROCYTE SEDIMENTATION RATE 4 mm/hr (0-20)
--- NOTE | 2020-07-16 15:33 | REP ---
INDICATION: swelling. COMPARISON: None. TECHNIQUE: Left lower extremity duplex venous ultrasound. FINDINGS: The deep veins are anechoic and fully compressible from the groin to the popliteal fossa in the left lower extremity. Color flow imaging is homogeneous. Spectral Doppler interrogation demonstrates intact respiratory variation in flow and normal manual augmentation of flow. There is no evidence of deep vein thrombosis. The IMPRESSION: Negative left lower extremity duplex venous ultrasound. No evidence of deep vein thrombosis. <Electronically signed by Rajendra Honeycutt > 07/16/20 1523
[2020-07-16 16:40] VITALS: BP 137/85
== END 2020-07-16 16:41 | disposition home or self-care (01) ==
LOC: M ED 13:08
DX: R22.42 Localized swelling, mass and lump, left lower limb (principal); M19.072 Primary osteoarthritis, left ankle and foot; M77.32 Calcaneal spur, left foot; M61.9 Calcification and ossification of muscle, unspecified; I48.91 Unspecified atrial fibrillation; E11.9 Type 2 diabetes mellitus without complications; I10 Essential (primary) hypertension; E78.5 Hyperlipidemia, unspecified; Z86.14 Personal history of Methicillin resistant Staphylococcus aureus infection; Z87.891 Personal history of nicotine dependence; Z79.01 Long term (current) use of anticoagulants; Z79.84 Long term (current) use of oral hypoglycemic drugs; Z79.899 Other long term (current) drug therapy

== ENCOUNTER → 2020-11-14 | Outpatient (REF) | payer MEDICARE ==
[~2020-11-14] MED LIST changes: +AMIO0.1T
[2020-11-14 16:59] LABS: HEMOGLOBIN A1c 5.2 %
== END ==
LOC: M LABDRAWC 15:56
PROVIDERS: ATTEND Family Medicine
DX: E11.69 Type 2 diabetes mellitus with other specified complication (principal)

== ENCOUNTER → 2021-05-14 | Outpatient (REF) | payer MEDICARE ==
[2021-05-15 12:09] LABS: BASO # 0.1 10^3/uL (0.0-0.2); BASO % 0.7 % (0.0-1.0); EOS # 0.2 10^3/uL (0.0-0.5); EOS % 2.1 % (0.0-3.0); HEMATOCRIT 42.5 % (42.0-52.0); LYMPH # 1.7 10^3/uL (1.5-5.0); LYMPH % 20.1 % (24.0-44.0); MEAN CORPUSCULAR HEMOGLOBIN 33.5 pg (27.0-33.0); MEAN CORPUSCULAR HGB CONC 32.9 g/dl (32.0-36.5); MEAN CORPUSCULAR VOLUME 101.7 fl (80.0-96.0); MONO # 0.6 10^3/uL (0.0-0.8); MONO % 6.5 % (2.0-8.0); NEUTROPHILS # 5.9 10^3/uL (1.5-8.5); NEUTROPHILS % 69.7 % (36.0-66.0); PLATELET COUNT, AUTOMATED 254 10^3/uL (150-450); RED BLOOD COUNT 4.18 10^6/uL (4.30-6.10); WHITE BLOOD COUNT 8.5 10^3/uL (4.0-10.0)
[2021-05-15 12:48] LABS: ERYTHROCYTE SEDIMENTATION RATE 8 mm/hr (0-20)
[2021-05-15 13:37] LABS: ALBUMIN 2.9 GM/DL (3.2-5.2); BILIRUBIN,TOTAL 0.3 MG/DL (0.2-1.0); C REACTIVE PROTEIN QUANTITATIV 0.3 MG/DL (0.00-0.30); CALCIUM LEVEL 8.7 MG/DL (8.8-10.2); CREATININE FOR GFR 1.3 MG/DL (0.70-1.30); FREE T4 0.93 NG/DL (0.76-1.46); GLOMERULAR FILTRATION RATE 58.6 (>49); POTASSIUM SERUM 4.6 MEQ/L (3.5-5.1); THYROID STIMULATING HORMONE 1.99 uIU/ML (0.358-3.740); TOTAL PROTEIN 6.1 GM/DL (6.4-8.2)
[2021-05-16 16:08] LABS: ANTI DOUBLE STRAND-DNA AB <1 IU/mL (0-9); ANTINUCLEAR ANTIBODIES DIRECT Positive (Negative); Lyme Disease IgG/IgM Antibodie <0.91 ISR (0.00-0.90); Lyme Disease IgM Ab Quantitati <0.80 index (0.00-0.79); SJOGREN'S ANTI SS-A <0.2 AI (0.0-0.9); SJOGREN'S ANTI SS-B <0.2 AI (0.0-0.9); SMITH ANTIBODIES <0.2 AI (0.0-0.9)
== END ==
LOC: M LABDRAWC 11:18
PROVIDERS: ATTEND Nurse Practitioner Family
DX: R21 Rash and other nonspecific skin eruption (principal)

== ENCOUNTER → 2022-03-24 | Outpatient (REF) | payer MEDICARE ==
[~2022-03-24] MED LIST changes: -BENI40TA26 PO; +OLME40TA56 PO
[2022-03-24 18:05] LABS: BASO % 0.5 % (0.0-1.0); EOS # 0.2 10^3/uL (0.0-0.5); EOS % 1.9 % (0.0-3.0); HEMATOCRIT 48.8 % (42.0-52.0); LYMPH # 1.1 10^3/uL (1.5-5.0); LYMPH % 14.2 % (24.0-44.0); MEAN CORPUSCULAR HEMOGLOBIN 33.8 pg (27.0-33.0); MEAN CORPUSCULAR HGB CONC 32.8 g/dl (32.0-36.5); MONO # 0.6 10^3/uL (0.0-0.8); MONO % 7.8 % (2.0-8.0); NEUTROPHILS % 75.3 % (36.0-66.0); PLATELET COUNT, AUTOMATED 202 10^3/uL (150-450); RED BLOOD COUNT 4.74 10^6/uL (4.30-6.10); WHITE BLOOD COUNT 7.9 10^3/uL (4.0-10.0)
[2022-03-24 18:42] LABS: CREATININE, URINE 182.7 MG/DL; MAU/CREAT RATIO 4.9 MCG/MG (0.0-30.0)
[2022-03-24 18:48] LABS: ALT/SGPT 46 U/L (7.0-40); BILIRUBIN,TOTAL 0.9 MG/DL (0.3-1.2); BLOOD UREA NITROGEN 7 MG/DL (9-23); CALCIUM LEVEL 8.5 MG/DL (8.3-10.6); CARBON DIOXIDE LEVEL 27 MMOL/L (20-31); CHLORIDE LEVEL 97 MMOL/L (98-107); CHOLESTEROL LEVEL 170 MG/DL (<200); CHOLESTEROL RISK RATIO 2.83 (<5); CREATININE FOR GFR 1.09 MG/DL (0.70-1.30); GLOMERULAR FILTRATION RATE > 60.0 (>49); GLUCOSE, FASTING 149 MG/DL (74-106); HDL CHOLESTEROL 59.9 MG/DL (>40); LDL CHOLESTEROL 89.5 MG/DL (<100); NON-HDL-C 110 MG/DL; SODIUM LEVEL 138 MMOL/L (136-145); TOTAL PROTEIN 6.9 G/DL (5.7-8.2); TRIGLYCERIDES LEVEL 103 MG/DL (<150)
[2022-03-24 19:14] LABS: ALBUMIN 3.7 G/DL (3.2-5.2)
[2022-03-24 20:13] LABS: HEMOGLOBIN A1c 4.9 % (4.0-6.0)
== END ==
LOC: M LABDRAWC 17:02
PROVIDERS: ATTEND Nurse Practitioner Family
DX: E11.69 Type 2 diabetes mellitus with other specified complication (principal)

== ENCOUNTER → 2023-10-15 | Outpatient (CLI) | payer MEDICARE ==
[~2023-10-15] MED LIST changes: +AMIO400T2; -AMIO400T7
[2023-10-15 16:04] LABS: APPEARANCE, URINE HAZY (CLEAR); BACTERIA, URINE AUTO NEGATIVE (NEGATIVE); BASO % 0.3 % (0.0-1.0); BILIRUBIN, URINE AUTO NEGATIVE (NEGATIVE); BLOOD, URINE BLOOD NEGATIVE (NEGATIVE); COLOR, URINE AMBER (YELLOW); EOS % 0.3 % (0.0-3.0); GLUCOSE, URINE (UA) AUTO 3+ mg/dL (NEGATIVE); HEMATOCRIT 36.7 % (42.0-52.0); HEMOGLOBIN 12.2 g/dl (13.5-17.5); KETONE, URINE AUTO TRACE mg/dL (NEGATIVE); LEUKOCYTE ESTERASE, URINE AUTO NEGATIVE (NEGATIVE); LYMPH # 1.8 10^3/uL (1.5-5.0); LYMPH % 13.9 % (24.0-44.0); MEAN CORPUSCULAR HEMOGLOBIN 34.4 pg (27.0-33.0); MEAN CORPUSCULAR HGB CONC 33.2 g/dl (32.0-36.5); MEAN CORPUSCULAR VOLUME 103.4 fl (80.0-96.0); MONO % 7.8 % (2.0-8.0); MUCUS, URINE SMALL (NEGATIVE); NEUTROPHILS # 10.1 10^3/uL (1.5-8.5); NEUTROPHILS % 77.1 % (36.0-66.0); NITRITE, URINE AUTO NEGATIVE (NEGATIVE); PLATELET COUNT, AUTOMATED 258 10^3/uL (150-450); PROTEIN, URINE AUTO 1+ mg/dL (NEGATIVE); RBC, URINE AUTO 0 /HPF (0-3); RED BLOOD COUNT 3.55 10^6/uL (4.30-6.10); SQUAMOUS EPITHELIAL CELL UR AU 1 /HPF (0-6); WBC, URINE AUTO 8 /HPF (0-3); WHITE BLOOD COUNT 13.1 10^3/uL (4.0-10.0)
[2023-10-15 16:10] LABS: ERYTHROCYTE SEDIMENTATION RATE 36 mm/hr (0-20)
[2023-10-15 16:34] LABS: LDH LACTATE DEHYDROGENASE 251 U/L (120-246)
[2023-10-15 16:35] LABS: IRON (FE) 88 UG/DL (65-175); PERCENT SATURATION 46.8 % (19.7-50.0); PSA SCREENING 1.22 NG/ML (< 4.00); TOTAL IRON BINDING CAPACITY 188 UG/DL (250-425)
[2023-10-15 16:36] LABS: ALBUMIN 2.2 G/DL (3.2-5.2); ALKALINE PHOSPHATASE 266 U/L (46-116); ALT/SGPT 39 U/L (7.0-40); AST/SGOT 103 U/L (<34); BILIRUBIN,DIRECT 0.9 MG/DL (<0.4); BILIRUBIN,TOTAL 1.4 MG/DL (0.3-1.2); BLOOD UREA NITROGEN 6 MG/DL (9-23); CARBON DIOXIDE LEVEL 32 MMOL/L (20-31); CHLORIDE LEVEL 97 MMOL/L (98-107); CHOLESTEROL LEVEL 119 MG/DL (<200); CHOLESTEROL RISK RATIO 3.99 (<5); CPK CREATINE PHOSPHOKINASE 63 U/L (46-171); CREATININE FOR GFR 1.14 MG/DL (0.70-1.30); GLOMERULAR FILTRATION RATE > 60.0 (>49); GLUCOSE, FASTING 156 MG/DL (74-106); HDL CHOLESTEROL 29.8 MG/DL (>40); MAGNESIUM LEVEL 1.4 MG/DL (1.8-2.4); NON-HDL-C 89.2 MG/DL; POTASSIUM SERUM 3.4 MMOL/L (3.5-5.1); SODIUM LEVEL 139 MMOL/L (136-145); TRIGLYCERIDES LEVEL 91 MG/DL (<150)
[2023-10-15 16:39] LABS: FERRITIN 670.5 NG/ML (10.5-307.3); THYROID STIMULATING HORMONE 5.098 uIU/ML (0.55-4.78)
[2023-10-15 16:45] LABS: HEMOGLOBIN A1c 5.4 % (4.0-6.0)
[2023-10-15 16:47] LABS: CREATININE, URINE 324.7 MG/DL; MAU/CREAT RATIO 2.4 MCG/MG (0.0-30.0)
[2023-10-15 17:05] LABS: HIV 1&2 SCREEN NEGATIVE (NEGATIVE)
== END ==
LOC: M PLALAB 14:03
PROVIDERS: ATTEND Nurse Practitioner Family
DX: R63.4 Abnormal weight loss (principal); E11.40 Type 2 diabetes mellitus with diabetic neuropathy, unspecified; E78.2 Mixed hyperlipidemia; I48.0 Paroxysmal atrial fibrillation; I10 Essential (primary) hypertension; Z12.5 Encounter for screening for malignant neoplasm of prostate; Z11.3 Encounter for screening for infections with a predominantly sexual mode of transmission; Z72.89 Other problems related to lifestyle; Z79.899 Other long term (current) drug therapy
CPT/HCPCS: 36415; 71046; 80053; 80061; 81001; 82043; 82248; 82550; 82728; 83036; 83550; 83615; 83735; 84439; 84443; 85025; 85652; 86140; 86780; 87086; 87389; G0103

== ENCOUNTER → 2023-10-26 | Outpatient (REF) | payer MEDICARE | LOC: M LAB REF 14:55 | PROVIDERS: ATTEND Nurse Practitioner Family | DX: E11.40 Type 2 diabetes mellitus with diabetic neuropathy, unspecified (principal); R63.4 Abnormal weight loss; I10 Essential (primary) hypertension; I48.0 Paroxysmal atrial fibrillation ==